=== PATIENT | female | born 1950 | race Caucasian/White ===

== ENCOUNTER 2020-11-09 08:21 | Emergency (ER) | payer MEDICARE ==
[~2020-11-09] VITALS: Ht 165.1 cm; Wt 61.2 kg
[2020-11-09] MEDS ORDERED: HYDROCODONE/APAP 5MG-325MG TAB PO ONE (10:00)
[2020-11-09] MEDS ORDERED: CLINDAMYCIN PHOS 600 MG/ 4 ML VIAL IM ONE (10:00)
== END 2020-11-09 10:14 | disposition home or self-care (01) ==
LOC: ER 09:16
DX: B26.9 Mumps without complication (principal)
CPT/HCPCS: 99283